=== PATIENT | male | born 1990 | race African-American/Black ===

== ENCOUNTER 2017-04-04 20:31 | Emergency (ER) | payer BC ==
[~2017-04-04] VITALS: Ht 165.1 cm; Wt 68.0 kg
== END 2017-04-04 20:45 | disposition home or self-care (01) ==
LOC: ER 20:31
DX: S61.211A Laceration without foreign body of left index finger without damage to nail, initial encounter (principal); F17.210 Nicotine dependence, cigarettes, uncomplicated; F10.99 Alcohol use, unspecified with unspecified alcohol-induced disorder; W26.8XXA Contact with other sharp object(s), not elsewhere classified, initial encounter; Y93.89 Activity, other specified; Y92.89 Other specified places as the place of occurrence of the external cause; Y99.8 Other external cause status

== ENCOUNTER 2020-10-24 11:10 | Emergency (ER) | payer BC ==
[~2020-10-24] VITALS: Ht 165.1 cm; Wt 68.0 kg
[2020-10-24 12:35] VITALS: BP 153/94
== END 2020-10-24 12:36 | disposition home or self-care (01) ==
LOC: ER 11:10
DX: S61.411A Laceration without foreign body of right hand, initial encounter (principal); F17.210 Nicotine dependence, cigarettes, uncomplicated; I10 Essential (primary) hypertension; W22.8XXA Striking against or struck by other objects, initial encounter; Y93.89 Activity, other specified; Y92.69 Other specified industrial and construction area as the place of occurrence of the external cause; Y99.9 Unspecified external cause status